=== PATIENT | male | born 1980 | race Caucasian/White ===

== ENCOUNTER 2017-11-08 07:56 | Day surgery (SDC) | payer OTHER ==
[2017-11-08] MEDS ORDERED: SEVOFLURANE 250 ML BOTTLE IH ONE (07:57)
[2017-11-08] MEDS ORDERED: DEXAMETHASONE SOD PHOSPHATE 4 MG INJ IV ONE (07:57)
[2017-11-08] MEDS ORDERED: IV LACTATED RINGERS SOLUTION 1,000 ML BAG IV ONE (07:57)
[2017-11-08] MEDS ORDERED: PROPOFOL 200 MG/20 ML BOTTLE IV ONE (07:57)
[2017-11-08] MEDS ORDERED: LIDOCAINE HCL 1% 20 ML VIAL MC ONE (07:57)
[2017-11-08] MEDS ORDERED: diphenhydrAMINE 50 MG/1 ML VIAL MC ONE (07:57)
[2017-11-08] MEDS ORDERED: ONDANSETRON 4 MG/2 ML VIAL IV ONE (07:57)
[2017-11-08] MEDS ORDERED: BUPIVACAINE 0.25% 30 ML VIAL ONE (09:25)
[2017-11-08] MEDS ORDERED: MORPHINE SULFATE PF 10 MG/10 ML AMPUL IV ONE (09:25)
[2017-11-08] MEDS ORDERED: HYDROMORPHONE 2 MG/1 ML DISP.SYRIN ONE (09:36)
[2017-11-08] MEDS ORDERED: MIDAZOLAM HCL 2 MG/2 ML VIAL ONE (09:36)
[2017-11-08] MEDS ORDERED: CLINDAMYCIN PHOSPHATE 600 MG/4 ML VIAL ONE (09:44)
== END 2017-11-08 12:37 | disposition home or self-care (01) ==
LOC: DS 07:56
PROVIDERS: ATTEND Orthopaedic Surgery
DX: S83.282A Other tear of lateral meniscus, current injury, left knee, initial encounter (principal); S83.92XA Sprain of unspecified site of left knee, initial encounter; X58.XXXA Exposure to other specified factors, initial encounter; Y93.9 Activity, unspecified; Y92.89 Other specified places as the place of occurrence of the external cause; Y99.9 Unspecified external cause status; M94.262 Chondromalacia, left knee; Z88.0 Allergy status to penicillin
CPT/HCPCS: A4663; J1100; J1170; J1200; J2250; J2274; J2405; J3490; J7120